=== PATIENT | female | born 1965 | race Caucasian/White ===

== ENCOUNTER 2024-02-02 09:44 | Outpatient (AMB) | payer OTHER, SELFPAY ==
--- NOTE | 2024-02-02 09:46 | MHC.PC.OV ---
Vital Signs 02/02/24 09:47 Height 5 ft 5 in Weight 193 lb 8 oz BMI 32.2 BP 138/88 Blood Pressure Location Lt brachial Position Sitting Pulse 99 Pulse Source Pulse Oximeter Pulse Oximetry (%) 98 Oxygen Delivery Method Room Air Intake Visit Reasons: DESTINATION COORDINATOR-DM Allergies No Known Allergies Allergy (Verified 02/02/24 09:50) Tobacco use date assessed: 02/02/24 Dental Screening Dental Screen Date: 02/02/24 Did you have a dental visit in the last 12 months?: Yes Did you have a dental problem in the last 6 months where you did not have access to dental care?: No Was dental information given to patient?: Patient has dentist HPI HPI Comments History of Present Illness Details 59 year old female with a past medical history of type 2 diabetes mellitus, GERD, asthma, abnormal brain MRI presenting for follow up. Type 2 diabetes: On metformin 1500mg daily, glipizide 20 daily. A1C 8.6%. Asthma: stable on albuterol ROS CONSTITUTIONAL: Denies weight loss, fever and chills. HEENT: Denies changes in vision and hearing. RESPIRATORY: Denies SOB and cough. CV: Denies palpitations and CP GI: Denies abdominal pain, nausea, vomiting and diarrhea. : Denies dysuria and urinary frequency. MSK: Denies new myalgia and joint pain. SKIN: Denies rash and pruritus. NEUROLOGICAL: Denies headache PSYCHIATRIC: Denies recent changes in mood. PHYSICAL EXAM: GENERAL: Alert and oriented x 3. NAD EYES: EOMI. Anicteric. HENT: Moist mucous membranes. No scleral icterus. No cervical lymphadenopathy. LUNGS: Clear to auscultation bilaterally. CARDIOVASCULAR: Regular rate and rhythm. No murmur. No JVD. ABDOMEN: Soft, non-tender +bs EXTREMITIES: No edema. Non-tender. SKIN: No rashes or lesions. Warm. NEUROLOGIC: No focal neurological deficits. CN II-XII grossly intact PSYCHIATRIC: Cooperative. Appropriate mood and affect COUNTS INCLUDE 234 BEDS AT THE [facility] Medical History Diabetes GERD (gastroesophageal reflux disease) Asthma Surgical History Hx of tonsillectomy Hx of appendectomy Family History Maternal Grandfather Hypertension Mother Diabetes Thyroid disorder Cancer Paternal Grandmother Cancer Social History Household Members: Significant Other Housing: House Alcohol intake: never Patient Tobacco Use Status: Never used Tobacco e-Cigarette/Vaping Use: Never Used Current occupational status: employed Current occupation: Accounting Current occupational exposures/hazards: No Cognitive needs: No Hearing needs: Yes Vision needs: No Questionnaire PHQ-9 Over the last 2 weeks, how often have you been bothered by any of the following problems? 1. Little interest or pleasure in doing things: not at all 2. Feeling down, depressed, or hopeless: not at all 3. Trouble falling or staying asleep, or sleeping too much: several days 4. Feeling tired or having little energy: not at all 5. Poor appetite or overeating: several days 6. Feeling bad about yourself - or that you are a failure or have let yourself or your family down: not at all 7. Trouble concentrating on things, such as reading the newspaper or watching television: not at all 8. Moving or speaking so slowly that other people could have noticed. Or the opposite - being so fidgety or restless that you have been moving around a lot more than usual: not at all 9. Thoughts that you would be better off or of hurting yourself in some way: not at all Total score: 2 Depression Screening Interpretation: Negative (neg) Depression Screening Done: Yes 48032 - PHQ-9 Billing: Yes Source: Developed by Drs. Feliciano Herrera, Elsi Negrete, Patricio David and colleagues, with an educational ashley from [employer]. Thrive Questionnaire Date Thrive assessed: 02/02/24 I am a: Patient What is your living situation today?: I have a steady place to live Within the past 12 months, did the food you bought not last and you didn't have the money to get more?: Never true Within the past 12 months, did you worry whether your food would run out before you got money to buy more?: Never true Do you have trouble paying for medicines?: No Do you have trouble getting transportation to medical appointments?: No Do you have trouble paying your heating and electricity bill?: No Do you have trouble taking care of your child, family member or friend?: No Do you have trouble with day-to-day activities such as bathing, preparing meals, shopping, managing finances, etc.?: No Are you currently unemployed and looking for a job?: No Are you interested in more education?: No THRIVE Score: 0 AUDIT C Alcohol Use Questionnaire (AUDIT-C) 1. How often do you have a drink containing alcohol?: Never 3. How often do you have six or more drinks on one occasion?: Never Total Score: 0 TYRESE-7 AMB Questionnaire TYRESE-7 Date TYRESE - 7 assessed: 02/02/24 Feeling nervous, anxious, or on edge: 1 = Several days Not being able to stop or control worryin = More than half the days Worrying too much about different things: 2 = More than half the days Trouble relaxin = Not at all Being so restless that it is hard to sit still: 0 = Not at all Becoming easily annoyed or irritable: 0 = Not at all Feeling afraid as if something awful might happen: 0 = Not at all Total TYRESE-7 score (0-4 normal; 5-9 mild; 10-14 moderate; 15-21 severe): 5 Source: Developed by Drs. Feliciano Herrera, Elsi Negrete, Patricio David and colleagues, with an educational ashley from [employer]. TYRESE-7 Assessment Billing TYRESE-7 Assessment Tool: TYRESE-7 Assessment 40793 ACT Questionnaire In the past 4 weeks, how much of the time did your asthma keep you from getting as much done at work, school or at home?: None of the time During the past 4 weeks, how often have you had shortness of breath?: 1-2 times a week During the past 4 weeks, how often did your asthma symptoms wake you up at night or earlier than usual in the morning?: Not at all During the past 4 weeks, how often have you had to use your rescue inhaler or nebulizer medication?: 1-2 times a week How would you rate your asthma control during the past 4 weeks?: Well controlled ACT Interpretation: Negative Score: 20 Physical exam (Primary Care) Vital Signs: Last Vital Signs Pulse 99 08/12/24 09:47 BP 138/88 02/02/24 09:47 Pulse Ox 98 02/02/24 09:47 Oxygen Delivery Method Room Air 02/02/24 09:47 BMI result Body Mass Index 32.2 Tobacco/Smoking Status: Tobacco use Status Tobacco use date assessed 02/02/24 02/02/24 10:03 Patient Tobacco Use Status Never used Tobacco 02/02/24 10:03 e-Cigarette/Vaping Use Never Used 02/02/24 10:03 PHQ-9: PHQ-9 Score PHQ-9: Total score 2 02/15/24 05:33 Depression Screening Interpretation: Negative (neg) Thrive Assessment: Date of Thrive Assessment Date Thrive assessed 02/02/24 02/02/24 10:03 Results AMB Hemoglobin A1c AMB Hemoglobin A1c 8.6 % Last Edit by Raquel Daly CMA on 02/02/24 10:16 Results Reviewed Results Reviewed: Laboratory Last Values Hgb A1c (Clinic) 8.6 % (4.0-6.0) H 02/02/24 10:10 Assessment and Plan Assessment & Plan (1) Diabetes: Code(s): E11.9 - Type 2 diabetes mellitus without complications Qualifiers: Diabetes mellitus type: type 2 Diabetes mellitus intermediate designer insulin use: without halfway use Diabetes mellitus complication status: with hyperglycemia Qualified Code(s): E11.65 - Type 2 diabetes mellitus with hyperglycemia Plan: Uncontrolled. Add actos. continue glipizide, metformin (2) GERD (gastroesophageal reflux disease): Code(s): K21.9 - Gastro-esophageal reflux disease without esophagitis Qualifiers: Esophagitis presence: esophagitis presence not specified Qualified Code(s): K21.9 - Gastro-esophageal reflux disease without esophagitis Plan 59 y/o to establish care. past medical, surgical, social, family history reviewed Orders: Orders AMB Hemoglobin A1c 02/02/24 E11.9 - Type 2 diabetes mellitus without complications Complete Blood Count Auto Diff 02/02/24 E11.9 - Type 2 diabetes mellitus without complications Comprehensive Met. Panel 02/02/24 E11.9 - Type 2 diabetes mellitus without complications Lipid Panel 02/02/24 E11.9 - Type 2 diabetes mellitus without complications Referrals Dermatology Referral D22.9 - Melanocytic nevi, unspecified Medications: New FreeStyle Lite Strips (blood sugar diagnostic) check blood glucose once daily 100 ea 3RF NS E11.9 - Type 2 diabetes mellitus without complications fluticasone propionate 220 mcg/actuation 2 puffs inhalation BID 12 grams 3RF pioglitazone (Actos) 30 mg PO DAILY 90 tabs 3RF albuterol sulfate 90 mcg/actuation 2 puffs inhalation Q4-6H PRN 8.5 grams 3RF shortness of breath Coding Level of Care Code New Pt Level 4 (80318) Diagnoses Type 2 diabetes mellitus with hyperglycemia, without long-term current use of insulin E11.65 Diabetes mellitus type: type 2 Diabetes mellitus halfway insulin use: without intermediate designer use Diabetes mellitus complication status: with hyperglycemia Gastroesophageal reflux disease, unspecified whether esophagitis present K21.9 Esophagitis presence: esophagitis presence not specified Additional Codes TYRESE-7 Assessment Billing - TYRESE-7 Assessment Tool: TYRESE-7 Assessment 64028 ([id number])
[2024-02-02 09:47] VITALS: BP 138/88; PULSE 99; O2SAT 98; BMI 32.2
== END 2024-02-02 10:54 | disposition home or self-care (01) ==
PROVIDERS: PCP Internal Medicine; Visit Provider Internal Medicine
DX: E11.9 Type 2 diabetes mellitus without complications (principal)
CPT/HCPCS: 83036; 99204

== ENCOUNTER 2024-05-04 08:07 | Outpatient (REF) | payer OTHER, SELFPAY ==
[2024-05-04 11:18] LABS: MANUAL DIFF FLAG NO
[2024-05-04 11:23] LABS: Basophils Percent Auto 0.6 % (0-2); Eosinophils Absolute Auto 0.1 X10*3/uL (0.0-0.4); Eosinophils Percent Auto 1.5 % (0-4); Hematocrit 39.9 % (37.0-47.0); Hemoglobin 12.9 g/dl (12.0-16.0); Imm Gran Abs Auto 0.01 X10*3/uL (0.00-0.03); Imm Gran Pct Auto 0.2 % (0.0-0.4); Lymphocytes Absolute Auto 2.4 X10*3/uL (1.2-4.9); Lymphocytes Percent Auto 44.3 % (20-40); Mean Corpuscular HGB Conc 32.3 g/dl (31.0-35.0); Mean Corpuscular Hemoglobin 29.3 pg (27.0-33.0); Mean Corpuscular Volume 90.7 fL (80.0-98.0); Mean Platelet Volume 9.4 fL (9.4-12.3); Monocytes Absolute Auto 0.4 X10*3/uL (0.1-1.2); Monocytes Percent Auto 8.2 % (2-11); Neutrophils Absolute Auto 2.4 x10*3/uL (2.0-8.3); Neutrophils Percent Auto 45.2 % (45-73); Platelet Count 219 X10*3/uL (160-400); Red Cell Distribution Width 12.7 % (11.0-16.0); White Blood Count 5.4 X10*3/uL (4.8-10.8)
[2024-05-04 11:54] LABS: Alanine Aminotransferase 17 U/L (0-31); Alkaline Phosphatase 58 U/L (39-117); Anion Gap 11 (12-20); Aspartate Amino Transferase 17 U/L (5-31); Blood Urea Nitrogen 17 mg/dL (9-16); Calcium 9.1 mg/dL (8.4-10.2); Carbon Dioxide 29 mmol/L (22-29); Chloride 105 mmol/L (96-108); Cholesterol 206 mg/dL (<200); Estimated Glomerular Filt Rate > 60; Glucose Random 164 mg/dL (60-115); HDL Cholesterol 63 mg/dL (>40); LDL Cholesterol Calculated 115 mg/dL (<100); Potassium 3.7 mmol/L (3.3-5.1); Sodium 141 mmol/L (135-145); Total Protein 6.7 g/dL (6.5-8.0); Triglycerides 142 mg/dL (<150)
== END 2024-05-04 08:08 | disposition home or self-care (01) ==
LOC: HO.WFDLDS 08:07
PROVIDERS: Visit Provider Internal Medicine
DX: E11.9 Type 2 diabetes mellitus without complications (principal)
CPT/HCPCS: 36415; 80053; 80061; 85025

== ENCOUNTER 2024-05-07 09:16 | Outpatient (AMB) | payer OTHER, SELFPAY ==
--- NOTE | 2024-05-07 09:21 | MHC.PC.OV ---
Vital Signs 05/07/24 09:24 Height 5 ft 5 in Weight 198 lb 6 oz BMI 33.0 BP 116/76 Blood Pressure Location Lt brachial Position Sitting Pulse 90 Pulse Source Pulse Oximeter Pulse Oximetry (%) 98 Oxygen Delivery Method Room Air Intake Visit Reasons: DM Intake Note: Diabetes follow up Allergies No Known Allergies Allergy (Verified 05/07/24 09:24) Tobacco use date assessed: 02/02/24 Dental Screening Dental Screen Date: 02/02/24 HPI HPI Comments History of Present Illness Details 59 year old female with a past medical history of type 2 diabetes mellitus, GERD, asthma, abnormal brain MRI presenting for follow up. Type 2 diabetes: On metformin 1500mg daily, glipizide 20 daily, added actos last visit. A1C 8.8% from 8.6%. Cant lose weight. Hesitant to overdo exercise at the moment as she pulled her back and just starting to feel better. hesitant to add medications. Asthma: stable on albuterol Colonoscopy: Mammogram: ROS CONSTITUTIONAL: Denies weight loss, fever and chills. HEENT: Denies changes in vision and hearing. RESPIRATORY: Denies SOB and cough. CV: Denies palpitations and CP GI: Denies abdominal pain, nausea, vomiting and diarrhea. : Denies dysuria and urinary frequency. MSK: Denies new myalgia and joint pain. SKIN: Denies rash and pruritus. NEUROLOGICAL: Denies headache PSYCHIATRIC: Denies recent changes in mood. PHYSICAL EXAM: GENERAL: Alert and oriented x 3. NAD EYES: EOMI. Anicteric. HENT: Moist mucous membranes. No scleral icterus. No cervical lymphadenopathy. LUNGS: Clear to auscultation bilaterally. CARDIOVASCULAR: Regular rate and rhythm. No murmur. No JVD. ABDOMEN: Soft, non-tender +bs EXTREMITIES: No edema. Non-tender. SKIN: No rashes or lesions. Warm. NEUROLOGIC: No focal neurological deficits. CN II-XII grossly intact PSYCHIATRIC: Cooperative. Appropriate mood and affect [facility] Medical History Diabetes GERD (gastroesophageal reflux disease) Asthma Surgical History Hx of tonsillectomy Hx of appendectomy Family History Maternal Grandfather Hypertension Mother Diabetes Thyroid disorder Cancer Paternal Grandmother Cancer Social History Household Members: Significant Other Housing: House Alcohol intake: current Comment: rarely Patient Tobacco Use Status: Never used Tobacco e-Cigarette/Vaping Use: Never Used Current occupational status: employed Current occupation: Accounting Current occupational exposures/hazards: No Cognitive needs: No Hearing needs: Yes Vision needs: No Questionnaire PHQ-9 Over the last 2 weeks, how often have you been bothered by any of the following problems? 1. Little interest or pleasure in doing things: not at all 2. Feeling down, depressed, or hopeless: not at all 3. Trouble falling or staying asleep, or sleeping too much: not at all 4. Feeling tired or having little energy: not at all 5. Poor appetite or overeating: not at all 6. Feeling bad about yourself - or that you are a failure or have let yourself or your family down: not at all 7. Trouble concentrating on things, such as reading the newspaper or watching television: not at all 8. Moving or speaking so slowly that other people could have noticed. Or the opposite - being so fidgety or restless that you have been moving around a lot more than usual: not at all 9. Thoughts that you would be better off or of hurting yourself in some way: not at all Total score: 0 Source: Developed by Drs. Feliciano Herrera, Elsi Negrete, Patricio David and colleagues, with an educational ashley from [employer]. Thrive Questionnaire Date Thrive assessed: 02/02/24 I am a: Patient What is your living situation today?: I have a steady place to live Within the past 12 months, did the food you bought not last and you didn't have the money to get more?: Never true Within the past 12 months, did you worry whether your food would run out before you got money to buy more?: Sometimes True Do you have trouble paying for medicines?: No Do you have trouble getting transportation to medical appointments?: No Do you have trouble paying your heating and electricity bill?: No Do you have trouble taking care of your child, family member or friend?: No Do you have trouble with day-to-day activities such as bathing, preparing meals, shopping, managing finances, etc.?: No Are you currently unemployed and looking for a job?: Yes Are you interested in more education?: No Please select the resources that you would like help with: None Currently or been in a relationship where the following occur: No concerns reported THRIVE Score: 1 AUDIT C Alcohol Use Questionnaire (AUDIT-C) 1. How often do you have a drink containing alcohol?: Monthly or less 2. How many drinks containing alcohol do you have on a typical day when you are drinking?: 1 or 2 3. How often do you have six or more drinks on one occasion?: Never Total Score: 1 TYRESE-7 AMB Questionnaire TYRESE-7 Date TYRESE - 7 assessed: 02/02/24 Feeling nervous, anxious, or on edge: 1 = Several days Not being able to stop or control worryin = Several days Worrying too much about different things: 1 = Several days Trouble relaxin = Several days Being so restless that it is hard to sit still: 0 = Not at all Becoming easily annoyed or irritable: 0 = Not at all Feeling afraid as if something awful might happen: 1 = Several days Total TYRESE-7 score (0-4 normal; 5-9 mild; 10-14 moderate; 15-21 severe): 5 Source: Developed by Drs. Feliciano Herrera, Elsi Negrete, Patricio David and colleagues, with an educational ashley from [employer]. Physical exam (Primary Care) Vital Signs: Last Vital Signs Pulse 90 05/07/24 09:24 BP 116/76 05/07/24 09:24 Pulse Ox 98 05/07/24 09:24 Oxygen Delivery Method Room Air 05/07/24 09:24 BMI result Body Mass Index 33.0 Tobacco/Smoking Status: Tobacco use Status Tobacco use date assessed 02/02/24 05/07/24 09:22 Patient Tobacco Use Status Never used Tobacco 05/07/24 09:23 e-Cigarette/Vaping Use Never Used 05/07/24 09:23 PHQ-9: PHQ-9 Score PHQ-9: Total score 0 05/13/24 14:44 Thrive Assessment: Date of Thrive Assessment Date Thrive assessed 02/02/24 05/07/24 09:22 Currently or been in a relationship where the following occur: No concerns reported Coding Level of Care Code Est Pt Level 4 (72522) Diagnoses Type 2 diabetes mellitus with hyperglycemia, without long-term current use of insulin E11.65 Diabetes mellitus complication status: with hyperglycemia Diabetes mellitus nursing home insulin use: without vermin exterminator use Diabetes mellitus type: type 2 Assessment & Plan Assessment & Plan (1) Diabetes: Code(s): E11.9 - Type 2 diabetes mellitus without complications Category: Medical Qualifiers: Diabetes mellitus complication status: with hyperglycemia Diabetes mellitus vermin exterminator insulin use: without vermin exterminator use Diabetes mellitus type: type 2 Qualified Code(s): E11.65 - Type 2 diabetes mellitus with hyperglycemia Plan: uncontrolled Discussed multiple medication options etc Patient does not want to add medications. Discussed GLP agonist, insulin at length. She may try the oral GLP-rybelsus ordered She will follow up in 3 months Advised to increase exercise Medications: New semaglutide (Rybelsus) 3 mg PO DAILY 90 tabs 3RF 90 days E11.65 - Type 2 diabetes mellitus with hyperglycemia
[2024-05-07 09:24] VITALS: BP 116/76; PULSE 90; O2SAT 98; BMI 33.0
== END 2024-05-07 10:24 | disposition home or self-care (01) ==
PROVIDERS: PCP Internal Medicine; Visit Provider Internal Medicine
DX: E11.65 Type 2 diabetes mellitus with hyperglycemia (principal)

== ENCOUNTER → 2024-05-07 09:16 | Outpatient (BNVA) | payer OTHER, SELFPAY | PROVIDERS: PCP Internal Medicine; Visit Provider Internal Medicine ==

== ENCOUNTER 2024-08-09 09:03 | Outpatient (AMB) | payer OTHER, SELFPAY ==
--- OUTSIDE RECORDS SUMMARY | 2024-08-09 09:06 | XMS_ITS | Data Portability ---
Author Organization [place] - [facility], Allergy Address [address] [place] [id number] Care Team Providers Care Photographer Still Name Role Phone JenniferBRYAN KEVIN Primary Care Provider Assessment Encounter Date Assessment Date Assessment LastModified by Organization Details LastModified Time 06/10/2024 06/10/2024 Overall patient doing well with regards to the absence of fluctuations in hearing. Audiometric testing today shows similar left-sided sensorineural hearing loss in comparison to her last audiogram 1 year ago. I have given her a copy of her audiogram to bring back to her hearing stenographer to ensure that her hearing aid is set to match her current level of hearing loss. Patient would like to continue with yearly audiometric testing to monitor for fluctuation or progression. Not available 06/10/2024 10:18:26 Plan of Treatment Reminders Order Date Submit Date Provider Last Modified By Organization Details Last Modified Time Details Appointments Hearing Test 2024 02:30P M Hearing Test Not available Not available Not available Establish ed 10 2024 03:00P M AUSTIN MATHEWS MD Not available Not available Not available Lab None recorded. Referral None recorded. Procedures None recorded. Surgeries None recorded. Imaging None recorded. Medication Orders None recorded. Patient TargetsNo targets recorded. Patient InstructionsNo instructions recorded. Reason for Referral None Reported. Results Created Date Observation Date Name Description Value Unit Range Abnormal Flag Note LastModifiedBy Organization Detail LastModifiedTime 06/11/20 24 audio gram No observ ation record ed. BARCODE Not Available 2023 12:17:13 Result Notes None recorded. 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 ? ?ni? ? ?re's disease 40079798 Active 2022 Meniere' s disease, left ear; Note: Date Diagnose d: 3 10:41 AM (H81.02) Not Available [facility] 4 03:19:00 Labyrint hitis 13327687 Completed 202101/23/2024 Labyrint hitis, left ear; Note: Date Diagnose d: 2 11:00 AM (H83.02) Not Available [facility] 4 03:19:00 Tinnitus of left ear 73309510416 06 Active 2021 Tinnitus , left ear; Note: Date Diagnose d: 2 11:00 AM (H93.12) Not Available [facility] 4 03:19:00 Problem Notes None recorded. Procedures Surgical History Date Name Laterality Status Provider Name and Address Organization Details Recorded Time 06/10/2024 Air & Speech Audio with Tymps (25282, 23411 & 24492) completed RUDDY LY MA, [facility] [address] [place] [address], [place], [phone], [facility] - [facility] 06/10/2024 09:57:27 Imaging Results Imaging Date Name Status LastModified by Organiz ation Details LastModified Time 06/11/2024 audiogram completed BARCODE Information no t available 06/11/2024 12:17:13 Procedure Notes None recorded. Medical Equipment None Reported. Medications Name Sig Start Date Stop Date Status Note LastModified by Organization Details LastModified Time FreeStyle Lancets 28 gauge USE TO CHECK BLOOD GLUCOSE TWICE DAILY active Not Available Not Available No t Available glipizide ER 5 mg tablet, extended release 24 hr TAKE 4 TABLETS BY MOUTH EVERY DAY active Not Available Not Available No t Available meclizine 25 mg tablet 08/22 completed Medicati on ID: [id number] B rand Name: meclizin david Send Method: E-Prescr ibed Sub s Allowed: subs OK Medic ationGen ericName : meclizin e Not Available Not Available Not Available fluticaso ne propionat e 220 mcg/actua tion HFA aerosol inhaler INHALE 2 PUFFS BY MOUTH 2 TIMES A DAY active Not Available Not Available No t Available albuterol sulfate HFA 90 mcg/actua tion aerosol inhaler INHALE 2 PUFFS BY MOUTH EVERY 4 TO 6 HOURS NEEDED FOR SHORTNES S OF BREATH active Not Available Not Available No t Available pioglitaz one 30 mg tablet TAKE 1 TABLET BY MOUTH EVERY DAY active Not Available Not Available No t Available metformin ER 500 mg tablet,ex tended release 24 hr TAKE 3 TABLETS BY MOUTH EVERY DAY active Not Available Not Available No t Available FreeStyle Lite Strips CHECK BLOOD GLUCOSE ONCE DAILY active Not Available Not Available No t Available Vitals Date Recorded Body weight Body mass index (BMI) Body height Provider Name and Address Organization Details Last Updated DateTime 06/10/2024 67152.51 g 32.4 kg/m2 165.1 cm Naa Medrano [facility] 06/10/2024 10:04:42 Social History None recorded. Functional Status None recorded. Mental Status None recorded. Family History Nothing Reported. Medical History No medical history recorded. Gynecological HistoryNo gynecological history recorded. Obstetrics History GPAL:G 0 P 0 0 0 0 Past Encounters Encounter ID Performer Location Encounter Start Date Encounter Closed Date Diagnosis/Indication Diagnosis SNOMED-CT Code Diagnosis ICD10 Code Diagnosis Note [id number] AUSTIN MATHEWS MD [facility] [address] [place] [address] 06/10/2024 09:17:38 06/10/2024 10:18:07 Sensorineural hearing loss 94003184 H90.42 Audiologic al evaluation results: Right ear: {{Normal* Normal through 2 kHz Mild M oderate Mo derately-s evere Milagro re Profoun d}} {{hearing* hearing. sloping to a mild slopi ng to a moderate s loping to moderately severe slo ping to severe slo ping to profound f lat high frequency low frequency mid frequency cookie bite fox curve}} {{with* se nsorineura l hearing loss with condu ctive hearing loss with mixed hearing loss with}} {{excellen t* good fa ir poor no measurable }} word recognitio n. Left ear: {{Normal N ormal through 2 kHz Mild M oderate Mo derately-s evere Milagro re Profoun d Mild #}} {{hearing hearing. s loping to a mild slopi ng to a moderate s loping to moderately severe slo ping to severe slo ping to profound f lat high frequency low frequency mid frequency cookie bite fox curve SNHL #}} {{with* se nsorineura l hearing loss with condu ctive hearing loss with mixed hearing loss with}} {{excellen t* good fa ir poor no measurable }} word recognitio n. Tympanomet ry: Right Ear:{{Type A* Type As Type Ad Type C Type C, shallow & rounded Ty pe B Type B with large volume Cou ld not maintain a hermetic seal}} Left Ear:{{Type A* Type As Type Ad Type C Type C, shallow & rounded Ty pe B Type B with large volume Cou ld not maintain a hermetic seal}}Hear ing levels are stable AU. Health Concerns Section Related Observation LastModified by Organization Detai ls LastModified Time None Recorded Concern Status LastModified by Organization Details LastModified Time None Recorded Advance Directives Directive None Recorded Payers Encounter Date Sequence Insurance Name Policy Number Policy López Covered Member ID López Member ID Guarantor Name 06/10/2024 1 [employer] [facility] [employer] (O) Cyndy Abarca [id number] Cyndy Abarca Notes Date Note Type Note Provider Name and Address Organization Details Recorded Time 06/10/2024 text/html 59-year-old anny alvarado who suffered a left sudden sensorineural hearing loss with associated dizziness in the summer 2021. Subsequent audiometric testing that showed some element of fluctuating sensorineural hearing loss on the left. I last saw her back 1 year ago she had not been having recurrence of hearing fluctuation. No fluctuations over the last year. She was using unilateral amplification dispensed through a hearing instrument dispenser in [place]. She had also been following a migraine diet. She comes in today for 1 year follow-up and audiogram.. Overall doing very well with her hearing aid and finds that it provides excellent benefit. AUSTIN MATHEWS MD [address] [place] [address], [phone], [facility] - [facility] 06/10/2024 10:18:38 OBGyn Episode No OBEpisode recorded.
--- NOTE | 2024-08-09 09:18 | A.OFFPC_ITS ---
Vital Signs 08/09/24 09:28 Height 5 ft Weight 206 lb BMI 40.2 BP 146/71 H Blood Pressure Location Lt brachial Position Sitting Respiration 15 Pulse 93 Pulse Source Pulse Oximeter Temp 97.9 F Intake Visit Reasons: 3 mn follow up, Diabetes Type 2 Electrical Laboratory Technician Required: No Is last menstrual period known: No Post menopausal: Yes Patient : No Allergies Seasonal Allergies Allergy (Mild, Verified 08/09/24 09:21) Nasal congestion milk Adverse Reaction (Intermediate, Verified 08/09/24 09:21) Abdominal Pain Medication List - Last Reconciled 08/09/24 by Tawanda Davila RN albuterol sulfate 90 mcg/actuation 2 puffs inhalation Q4-6H PRN FreeStyle Lite Strips (blood sugar diagnostic) check blood glucose once daily NS glipizide ER 20 mg (4 x 5 mg) PO DAILY lancets (FreeStyle Lancets) used to check blood sugar one time per day as directed meclizine 25 mg PO DAILY PRN metformin ER 1,500 mg (3 x 500 mg) PO DAILY pioglitazone (Actos) 30 mg PO DAILY Tobacco use date assessed: 02/02/24 Dental Screening Dental Screen Date: 06/11/24 Did you have a dental problem in the last 6 months where you did not have access to dental care?: No Was dental information given to patient?: No HPI HPI Comments History of Present Illness Details 59 year old female with a past medical h istory of type 2 diabetes mellitus, GERD, asthma, abnormal brain MRI presenting for follow up. Type 2 diabetes: On metformin 1500mg daily, glipizide 20 daily, Actos. She is due for A1C.Last A1C 8.8% from 8.6%. Difficulty losing weight does not want GLP, additional medication though she did medicinal plant picker her prescription for rybelsus but never started it. She is eating low carb, exercising multiple times per week. Asthma: stable on albuterol Colonoscopy: Mammogram: ROS CONSTITUTIONAL: Denies weight loss, fever and chills. HEENT: Denies changes in vision and hearing. RESPIRATORY: Denies SOB and cough. CV: Denies palpitations and CP GI: Denies abdominal pain, nausea, vomiting and diarrhea. : Denies dysuria and urinary frequency. MSK: Denies new myalgia and joint pain. SKIN: Denies rash and pruritus. NEUROLOGICAL: Denies headache PSYCHIATRIC: Denies recent changes in mood. PHYSICAL EXAM: GENERAL: Alert and oriented x 3. NAD EYES: EOMI. Anicteric. HENT: Moist mucous membranes. No scleral icterus. No cervical lymphadenopathy. LUNGS: Clear to auscultation bilaterally. CARDIOVASCULAR: Regular rate and rhythm. No murmur. No JVD. ABDOMEN: Soft, non-tender +bs EXTREMITIES: No edema. Non-tender. SKIN: No rashes or lesions. Warm. NEUROLOGIC: No focal neurological deficits. CN II-XII grossly intact PSYCHIATRIC: Cooperative. Appropriate mood and affect [facility] Medical History Diabetes GERD (gastroesophageal reflux disease) Asthma Surgical History Hx of tonsillectomy Hx of appendectomy Family History Maternal Grandfather Hypertension Mother Diabetes Thyroid disorder Cancer Paternal Grandmother Cancer Social History Household Members: Significant Other Housing: House Alcohol intake: current Comment: rarely Patient Tobacco Use Status: Never used Tobacco e-Cigarette/Vaping Use: Never Used Current occupational status: employed and student Current occupation: Accounting Current occupational exposures/hazards: No Cognitive needs: No Hearing needs: Yes Vision needs: No Questionnaire PHQ-9 Over the last 2 weeks, how often have you been bothered by any of the following problems? 1. Little interest or pleasure in doing things: not at all 2. Feeling down, depressed, or hopeless: not at all 3. Trouble falling or staying asleep, or sleeping too much: not at all 4. Feeling tired or having little energy: not at all 5. Poor appetite or overeating: not at all 6. Feeling bad about yourself - or that you are a failure or have let yourself or your family down: not at all 7. Trouble concentrating on things, such as reading the newspaper or watching television: not at all 8. Moving or speaking so slowly that other people could have noticed. Or the opposite - being so fidgety or restless that you have been moving around a lot more than usual: not at all 9. Thoughts that you would be better off or of hurting yourself in some way: not at all Total score: 0 Depression Screening Interpretation: Negative Depression Screening Done: Yes 76068 - PHQ-9 Billing: Yes Source: Developed by Drs. Feliciano Herrera, Elsi Negrete, Patricio David and colleagues, with an educational ashley from [employer]. Thrive Questionnaire Date Thrive assessed: 08/06/24 I am a: Patient What is your living situation today?: I have a steady place to live Within the past 12 months, did the food you bought not last and you didn't have the money to get more?: Never true Within the past 12 months, did you worry whether your food would run out before you got money to buy more?: Never true Do you have trouble paying for medicines?: No Do you have trouble getting transportation to medical appointments?: No Do you have trouble paying your heating and electricity bill?: No Do you have trouble taking care of your child, family member or friend?: No Do you have trouble with day-to-day activities such as bathing, preparing meals, shopping, managing finances, etc.?: No Are you currently unemployed and looking for a job?: Yes Are you interested in more education?: I choose not to answer this question Please select the resources that you would like help with: None Currently or been in a relationship where the following occur: No concerns reported THRIVE Score: 0 AUDIT C Alcohol Use Questionnaire (AUDIT-C) 1. How often do you have a drink containing alcohol?: Monthly or less 2. How many drinks containing alcohol do you have on a typical day when you are drinking?: 1 or 2 3. How often do you have six or more drinks on one occasion?: Never Total Score: 1 TYRESE-7 AMB Questionnaire TYRESE-7 Date TYRESE - 7 assessed: 02/02/24 Feeling nervous, anxious, or on edge: 0 = Not at all Not being able to stop or control worryin = Not at all Worrying too much about different things: 0 = Not at all Trouble relaxin = Not at all Being so restless that it is hard to sit still: 0 = Not at all Becoming easily annoyed or irritable: 0 = Not at all Feeling afraid as if something awful might happen: 0 = Not at all Total TYRESE-7 score (0-4 normal; 5-9 mild; 10-14 moderate; 15-21 severe): 0 Source: Developed by Drs. Feliciano Herrera, Elsi Negrete, Patricio David and colleagues, with an educational ashley from [employer]. Physical exam (Primary Care) Vital Signs: Last Vital Signs Temp 97.9 F 08/09/24 09:28 Pulse 93 08/09/24 09:28 Resp 15 08/09/24 09:28 BP 146/71 H 08/09/24 09:28 BMI result Body Mass Index 40.2 Tobacco/Smoking Status: Tobacco use Status Tobacco use date assessed 02/02/24 08/09/24 09:32 Patient Tobacco Use Status Never used Tobacco 08/09/24 09:32 e-Cigarette/Vaping Use Never Used 08/09/24 09:32 PHQ-9: PHQ-9 Score PHQ-9: Total score 0 08/10/24 07:23 Depression Screening Interpretation: Negative Thrive Assessment: Date of Thrive Assessment Date Thrive assessed 08/06/24 08/09/24 09:32 Currently or been in a relationship where the following occur: No concerns reported Coding Level of Care Code Est Pt Level 4 (43563) Complex EM visit Add On G2211 Diagnoses Type 2 diabetes mellitus with hyperglycemia, without long-term current use of insulin E11.65 Diabetes mellitus complication status: with hyperglycemia Diabetes mellitus joint terminal attack controller insulin use: without joint terminal attack controller use Diabetes mellitus type: type 2 Additional Codes PHQ-9 - 85579 - PHQ-9 Billing: Yes ([id number]) Assessment & Plan Assessment & Plan (1) Diabetes: Code(s): E11.9 - Type 2 diabetes mellitus without complications Category: Medical Qualifiers: Diabetes mellitus complication status: with hyperglycemia Diabetes mellitus skilled nursing insulin use: without joint terminal attack controller use Diabetes mellitus type: type 2 Qualified Code(s): E11.65 - Type 2 diabetes mellitus with hyperglycemia Plan: Pending A1C. She will go to the lab and follow up for results Continued dietary/lifestyle changes. Orders: Orders Hemoglobin A1c 08/09/24 E11.65 - Type 2 diabetes mellitus with hyperglycemia, K21.9 - Gastro-esophageal reflux disease without esophagitis Comprehensive Met. Panel 02/17/25 E11.65 - Type 2 diabetes mellitus with hyperglycemia, K21.9 - Gastro-esophageal reflux disease without esophagitis Lipid Panel 08/09/24 - Type 2 diabetes mellitus with hyperglycemia, K21.9 - Gastro-esophageal reflux disease without esophagitis Hemoglobin A1c 08/09/24 - Type 2 diabetes mellitus with hyperglycemia Comprehensive Met. Panel 08/09/24 - Type 2 diabetes mellitus with hyperglycemia
[2024-08-09 09:28] VITALS: BP 146/71; PULSE 93; RESP 15; TEMP 36.6; BMI 40.2
== END 2024-08-09 09:59 | disposition home or self-care (01) ==
PROVIDERS: PCP Internal Medicine; Visit Provider Internal Medicine
DX: E11.65 Type 2 diabetes mellitus with hyperglycemia (principal)

== ENCOUNTER → 2024-08-09 09:03 | Outpatient (BNVA) | payer OTHER, SELFPAY | PROVIDERS: PCP Internal Medicine; Visit Provider Internal Medicine | DX: E11.65 Type 2 diabetes mellitus with hyperglycemia (principal); J45.909 Unspecified asthma, uncomplicated; K21.9 Gastro-esophageal reflux disease without esophagitis | CPT/HCPCS: 96127 ==

== ENCOUNTER 2024-08-09 10:00 | Outpatient (REF) | payer OTHER, SELFPAY ==
[2024-08-09 11:13] LABS: Alanine Aminotransferase 19 U/L (0-31); Albumin Level 4.1 g/dL (3.5-5.0); Alkaline Phosphatase 62 U/L (39-117); Anion Gap 14 (12-20); Aspartate Amino Transferase 17 U/L (5-31); Bilirubin Total 0.7 mg/dL (0.0-1.0); Blood Urea Nitrogen 12 mg/dL (9-16); Calcium 9.2 mg/dL (8.4-10.2); Carbon Dioxide 22 mmol/L (22-29); Chloride 108 mmol/L (96-108); Cholesterol 194 mg/dL (<200); Estimated Glomerular Filt Rate > 60; Glucose Random 129 mg/dL (60-115); HDL Cholesterol 55 mg/dL (>40); LDL Cholesterol Calculated 106 mg/dL (<100); Potassium 4.1 mmol/L (3.3-5.1); Sodium 140 mmol/L (135-145); Total Protein 7.3 g/dL (6.5-8.0); Triglycerides 169 mg/dL (<150)
[2024-08-09 11:16] LABS: Estimated Average Glucose 174 mg/dL; Hemoglobin A1C 211.3155 umol/L; Hemoglobin A1c % 7.7 % (<6.0); Total Hemoglobin (HGBA1C) 3477.2759 umol/L
== END 2024-08-09 10:01 | disposition home or self-care (01) ==
LOC: HO.WFDLDS 10:00
PROVIDERS: Visit Provider Internal Medicine
DX: E11.65 Type 2 diabetes mellitus with hyperglycemia (principal); K21.9 Gastro-esophageal reflux disease without esophagitis
CPT/HCPCS: 36415; 80053; 80061; 83036

== ENCOUNTER 2024-09-27 12:59 | Outpatient (AMB) | payer OTHER, SELFPAY ==
--- NOTE | 2024-09-27 13:02 | AM.OFFWIN_ITS ---
Intake Vital Signs 09/27/24 13:06 Height 5 ft 5 in Weight 204 lb BMI 33.9 BP 138/78 Blood Pressure Location Lt brachial Position Sitting Respiration 13 Pulse 97 Pulse Source Pulse Oximeter Temp 97.8 F Temp Source Oral Pulse Oximetry (%) 98 Oxygen Delivery Method Simple Mask Intake Visit Reasons: Flue, congestion Intake Note: Patient c/o coughing, congestion, facial pressure and left ear bothering x 1 week Patient Tobacco Use Status: Never used Tobacco Padding Gluer Required: No Allergies Seasonal Allergies Allergy (Mild, Verified 09/27/24 13:12) Nasal congestion milk Adverse Reaction (Intermediate, Verified 09/27/24 13:12) Abdominal Pain Medication List - Last Reconciled 09/27/24 by Yaneli Preston, [facility]- albuterol sulfate 90 mcg/actuation 2 puffs inhalation Q4-6H PRN FreeStyle Lite Strips (blood sugar diagnostic) check blood glucose once daily NS glipizide ER 20 mg (4 x 5 mg) PO DAILY lancets (FreeStyle Lancets) used to check blood sugar one time per day as directed meclizine 25 mg PO DAILY PRN metformin ER 1,500 mg (3 x 500 mg) PO DAILY pioglitazone (Actos) 30 mg PO DAILY Do you need a note to return to daycare/school/sports/work: No HPI HPI Comments History of Present Illness Details [facility] w/ flu like sx Started 1 week ago at first thought it was allergies d/t yardwork and dog exposure Sx: feeling tired, sore throat, facial pressure, disturbed sleep d/t sx, headache, cough Tried OTC meds w/ short lived relief Denies fever, chills. Exam: General: Awake, alert. No apparent distress Eyes: Sclera and conjunctiva clear bilaterally Nose: Nares clear drainage, congested, turbinates within normal limits, mild sinus tenderness with palpation maxillary sinuses bilaterally Ears: Tympanic membranes intact and clear bilaterally Throat: Moist mucosa membrane, pharynx within normal limits, no ac adenopathy Cardiovascular: Regular rate and rhythm Respiratory: Clear to auscultation bilaterally During my consultation with the patient, we explored the likelihood of a viral upper respiratory infection given the symptomatology of sinus pressure and congestion without significant findings supporting a bacterial sinus infection, which often presents following prolonged cold symptoms beyond 14 days. I reviewed the rationale for supportive care treatment, emphasizing the need for nasal decongestants and rest rather than antibiotics at this time. I explained the potential fluctuation of viral symptoms and the commonality of current exposures leading to viral infections. Swab testing for influenza, COVID, and RSV completed. She was informed of signs warranting further evaluation, namely if symptoms persist or worsen, indicating a potential bacterial process. I discussed the option of prescription antiviral therapy, should influenza be confirmed. She will be called w/ results once available. Until then, supportive care. Patient instructions - Continue using [id number] nasal decongestants like Sudafed as needed. - Maintain hydration by drinking plenty of fluids. - Get plenty of rest and avoid strenuous activity. - Try to minimize exposure to allergens such as dust and pollen. - If symptoms persist or worsen, seek fu rther medical evaluation. - Contact the clinic if a work note is r equired. Total time spent caring for the patient today was 30 minutes. This includes time spent before the visit reviewing the chart, time spent during the visit, and time spent after the visit on documentation, reviewing laboratory results, diagnostic imaging, medications, performing a medically necessary evaluation, counseling on diagnoses, care coordination, ordering appropriate tests, ordering appropriate medications, review of tests performed by other providers, reporting test results with the patient, communication with other healthcare providers. [facility] Medical History Diabetes GERD (gastroesophageal reflux disease) Asthma Surgical History Hx of tonsillectomy Hx of appendectomy Family History Maternal Grandfather Hypertension Mother Diabetes Thyroid disorder Cancer Paternal Grandmother Cancer Social History Household Members: Significant Other Housing: House Alcohol intake: current Comment: rarely Patient Tobacco Use Status: Never used Tobacco e-Cigarette/Vaping Use: Never Used Current occupational status: employed and student Current occupation: Accounting Current occupational exposures/hazards: No Cognitive needs: No Hearing needs: Yes Vision needs: No Physical Exam Vital Signs: Last Vital Signs Temp 97.8 F 09/27/24 13:06 Pulse 97 04/07/25 13:06 Resp 13 09/27/24 13:06 BP 138/78 09/27/24 13:06 Pulse Ox 98 09/27/24 13:06 Oxygen Delivery Method Simple Mask 09/27/24 13:06 BMI result Body Mass Index 33.9 Assessment & Plan Assessment & Plan (1) Flu-like symptoms: Code(s): R68.89 - Other general symptoms and signs Plan . Orders: Orders SARS-CoV2/FLU/RSV Today R09.89 - Other specified symptoms and signs involving the circulatory and respiratory systems, R68.89 - Other general symptoms and signs Coding Level of Care Code Est Pt Level 4 (44162) Diagnoses Flu-like symptoms R68.89
[2024-09-27 13:06] VITALS: BP 138/78; PULSE 97; RESP 13; TEMP 36.6; O2SAT 98; BMI 33.9
--- OUTSIDE RECORDS SUMMARY | 2024-09-27 15:24 | XMS_ITS | Data Portability ---
Author Organization [place] - [facility], Allergy Address [address] [place] [phone] Care Team Providers Care Category Manager Name Role Phone JenniferBRYAN KEVIN Primary Care Provider [phone] Assessment Encounter Date Assessment Date Assessment LastModified by Organization Details LastModified Time 06/10/2024 06/10/2024 Overall patient doing well with regards to the absence of fluctuations in hearing. Audiometric testing today shows similar left-sided sensorineural hearing loss in comparison to her last audiogram 1 year ago. I have given her a copy of her audiogram to bring back to her lan specialist to ensure that her hearing aid is set to match her current level of hearing loss. Patient would like to continue with yearly audiometric testing to monitor for fluctuation or progression. 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 ? ?ni? ? ?re's disease 01104575 Active 2022 Meniere' s disease, left ear; Note: Date Diagnose d: 3 10:41 AM (H81.02) Not Available [facility] 4 03:19:00 Labyrint hitis 39180276 Completed 202101/23/2024 Labyrint hitis, left ear; Note: Date Diagnose d: 2 11:00 AM (H83.02) Not Available [facility] 4 03:19:00 Tinnitus of left ear 45195751040 06 Active 2021 Tinnitus , left ear; Note: Date Diagnose d: 2 11:00 AM (H93.12) Not Available [facility] 4 03:19:00 Problem Notes None recorded. Procedures Surgical History Date Name Laterality Status Provider Name and Address Organization Details Recorded Time 06/10/2024 Air & Speech Audio with Tymps (10923, 41751 & 97681) completed RUDDY LY MA, [facility] [address] [place] [address], [place], [phone], [facility] - [facility] 06/10/2024 09:57:27 Imaging Results Imaging Date Name [...] mg tablet 08/22 completed Medicati on ID: [id number] B rand Name: meclizin david Send Method: [...] Address Organization Details Last Updated DateTime 06/10/2024 16456.51 g 32.4 kg/m2 165.1 cm Naa Medrano [facility] 06/10/2024 10:04:42 Social History None recorded. Functional Status None recorded. Mental Status None recorded. Family History Nothing Reported. Medical History No medical history recorded. Gynecological HistoryNo gynecological history recorded. Obstetrics History GPAL:G 0 P 0 0 0 0 Past Encounters Encounter ID Performer Location Encounter Start Date Encounter Closed Date Diagnosis/Indication Diagnosis SNOMED-CT Code Diagnosis ICD10 Code Diagnosis Note [id number] AUSTIN MATHEWS MD [facility] [address] [place] [address] 06/10/2024 09:17:38 06/10/2024 10:18:07 Sensorineural hearing loss 31569819 H90.42 Audiologic al evaluation results: Right ear: [...] frequency low frequency mid frequency cookie bite fxo curve SNHL #}} {{with* se nsorineura l [...] ID Guarantor Name 06/10/2024 1 [employer]ANS [facility] [email or web address] (O) Cyndy Abarca [id number] Cyndy Abraca Notes Date Note Type Note Provider Name [...] dispensed through a hearing instrument dispenser in [place]. She had also been following a migraine diet. She comes in today for 1 year follow-up and audiogram.. Overall doing very well with her hearing aid and finds that it provides excellent benefit. AUSTIN MATHEWS MD [address] [place] [address], [phone], [facility] - [facility] 06/10/2024 10:18:38 OBGyn Episode No OBEpisode recorded.
== END 2024-09-27 13:24 | disposition home or self-care (01) ==
LOC: HO.HMCFM 13:00
PROVIDERS: PCP Internal Medicine; Visit Provider Nurse Practitioner Family
DX: R68.89 Other general symptoms and signs (principal)

== ENCOUNTER 2024-09-27 12:59 | Outpatient (REF) | payer OTHER, SELFPAY ==
[2024-09-27 18:31] LABS: Influenza A PCR NEGATIVE (Negative); Influenza B PCR NEGATIVE (Negative); Resp Syncy Virus RNA Qual PCR NEGATIVE (Negative); SARS COV2 PCR INHOUSE NEGATIVE (Negative)
== END 2024-09-27 13:00 | disposition home or self-care (01) ==
LOC: HO.LNP 12:59
PROVIDERS: PCP Internal Medicine; Visit Provider Nurse Practitioner Family
DX: R05.8 Other specified cough (principal); R09.89 Other specified symptoms and signs involving the circulatory and respiratory systems; R68.89 Other general symptoms and signs
CPT/HCPCS: 0241U

== ENCOUNTER 2024-11-23 09:33 | Outpatient (AMB) | payer OTHER, SELFPAY ==
--- NOTE | 2024-11-23 09:35 | A.OFFPC_ITS ---
Vital Signs 11/23/24 09:39 11/23/24 09:47 Height 5 ft 5 in Weight 202 lb 8 oz BMI 33.7 BP 124/92 H 126/82 Blood Pressure Location Lt brachial Lt brachial Position Sitting Sitting Respiration 14 Pulse 94 Pulse Source Pulse Oximeter Pulse Oximetry (%) 97 Oxygen Delivery Method Room Air Intake Visit Reasons: DM Intake Note: diabetes follow up. [employer] Humanities Teacher Required: No Allergies Seasonal Allergies Allergy (Mild, Verified 11/23/24 09:36) Nasal congestion milk Adverse Reaction (Intermediate, Verified 11/23/24 09:36) Abdominal Pain Tobacco use date assessed: 11/23/24 Dental Screening Dental Screen Date: 11/23/24 Did you have a dental visit in the last 12 months?: Yes Did you have a dental problem in the last 6 months where you did not have access to dental care?: No Was dental information given to patient?: Patient has dentist HPI HPI Comments History of Present Illness Details 59 year old female with a past medical h istory of type 2 diabetes mellitus, GERD, asthma, abnormal brain MRI presenting for follow up. Type 2 diabetes: On metformin 1500mg daily, glipizide 20 daily, Actos 30mg. A1C 7.1%. Last A1C 8.8% from 8.6%. Difficulty losing weight but has lost 2 pounds since her last visit and 2 prior to that. She is eating low carb, exercising multiple times per week. Just ran a [employer]. She saw instrumentation engineering technician and has started a new eating program. She is using a nutrition ward Asthma: stable on albuterol Colonoscopy: Mammogram: ROS CONSTITUTIONAL: Denies weight loss, fever and chills. HEENT: Denies changes in vision and hearing. RESPIRATORY: Denies SOB and cough. CV: Denies palpitations and CP GI: Denies abdominal pain, nausea, vomiting and diarrhea. : Denies dysuria and urinary frequency. MSK: Denies new myalgia and joint pain. SKIN: Denies rash and pruritus. NEUROLOGICAL: Denies headache PSYCHIATRIC: Denies recent changes in mood. PHYSICAL EXAM: GENERAL: Alert and oriented x 3. NAD EYES: EOMI. Anicteric. HENT: Moist mucous membranes. No scleral icterus. No cervical lymphadenopathy. LUNGS: Clear to auscultation bilaterally. CARDIOVASCULAR: Regular rate and rhythm. No murmur. No JVD. ABDOMEN: Soft, non-tender +bs EXTREMITIES: No edema. Non-tender. SKIN: No rashes or lesions. Warm. NEUROLOGIC: No focal neurological deficits. CN II-XII grossly intact PSYCHIATRIC: Cooperative. Appropriate mood and affect [facility] Medical History Diabetes GERD (gastroesophageal reflux disease) Asthma Surgical History Hx of tonsillectomy Hx of appendectomy Family History Maternal Grandfather Hypertension Mother Diabetes Thyroid disorder Cancer Paternal Grandmother Cancer Social History Household Members: Significant Other Housing: House Alcohol intake: current Comment: rarely Patient Tobacco Use Status: Never used Tobacco e-Cigarette/Vaping Use: Never Used service: No Current occupational status: employed and student Current occupation: Accounting Current occupational exposures/hazards: No Cognitive needs: No Hearing needs: Yes Vision needs: No Questionnaire Thrive Questionnaire Date Thrive assessed: 08/06/24 I am a: Patient What is your living situation today?: I have a steady place to live Within the past 12 months, did the food you bought not last and you didn't have the money to get more?: Never true Within the past 12 months, did you worry whether your food would run out before you got money to buy more?: Never true Do you have trouble paying for medicines?: No Do you have trouble getting transportation to medical appointments?: No Do you have trouble paying your heating and electricity bill?: No Do you have trouble taking care of your child, family member or friend?: No Do you have trouble with day-to-day activities such as bathing, preparing meals, shopping, managing finances, etc.?: No Are you currently unemployed and looking for a job?: Yes Are you interested in more education?: I choose not to answer this question Please select the resources that you would like help with: None Currently or been in a relationship where the following occur: No concerns reported THRIVE Score: 0 AUDIT C Alcohol Use Questionnaire (AUDIT-C) 1. How often do you have a drink containing alcohol?: Monthly or less 2. How many drinks containing alcohol do you have on a typical day when you are drinking?: 1 or 2 3. How often do you have six or more drinks on one occasion?: Never Total Score: 1 TYRESE-7 AMB Questionnaire TYRESE-7 Date TYRESE - 7 assessed: 02/02/24 Source: Developed by Drs. Feliciano Herrera, Elsi Negrete, Patricio David and colleagues, with an educational ashley from [employer]. Physical exam (Primary Care) Vital Signs: Last Vital Signs Pulse 94 11/23/24 09:39 Resp 14 11/23/24 09:39 BP 124/92 H 11/23/24 09:39 Pulse Ox 97 11/23/24 09:39 Oxygen Delivery Method Room Air 11/23/24 09:39 BMI result Body Mass Index 33.7 Tobacco/Smoking Status: Tobacco use Status Tobacco use date assessed 02/02/24 11/23/24 09:36 Patient Tobacco Use Status Never used Tobacco 11/23/24 09:36 e-Cigarette/Vaping Use Never Used 11/23/24 09:36 Thrive Assessment: Date of Thrive Assessment Date Thrive assessed 08/06/24 11/23/24 09:36 Currently or been in a relationship where the following occur: No concerns reported Coding Level of Care Code Est Pt Level 4 (08226) Diagnoses Type 2 diabetes mellitus with hyperglycemia, without long-term current use of insulin E11.65 Diabetes mellitus type: type 2 Diabetes mellitus mcc insulin use: without mcc use Diabetes mellitus complication status: with hyperglycemia Gastroesophageal reflux disease, unspecified whether esophagitis present K21.9 Esophagitis presence: esophagitis presence not specified Assessment & Plan Assessment & Plan (1) Diabetes: Code(s): E11.9 - Type 2 diabetes mellitus without complications Category: Medical Qualifiers: Diabetes mellitus type: type 2 Diabetes mellitus termite control service representative insulin use: without mcc use Diabetes mellitus complication status: with hyperglycemia Qualified Code(s): E11.65 - Type 2 diabetes mellitus with hyperglycemia (2) GERD (gastroesophageal reflux disease): Code(s): K21.9 - Gastro-esophageal reflux disease without esophagitis Category: Medical Qualifiers: Esophagitis presence: esophagitis presence not specified Qualified Code(s): K21.9 - Gastro-esophageal reflux disease without esophagitis Plan DM2-Much improved glycemic control. continue lifestyle changes. No medication changes today On new diet journey Blood pressure is well controlled Orders: Orders Comprehensive Met. Panel 3 Months E11.65 - Type 2 diabetes mellitus with hyperglycemia Complete Blood Count Auto Diff 3 Months E11.65 - Type 2 diabetes mellitus with hyperglycemia Lipid Panel 3 Months E11.65 - Type 2 diabetes mellitus with hyperglycemia Vitamin B12 and Folate Today G62.9 - Polyneuropathy, unspecified
[2024-11-23 09:39] VITALS: BP 124/92; PULSE 94; RESP 14; O2SAT 97; BMI 33.7
[2024-11-23 09:47] VITALS: BP 126/82
--- OUTSIDE RECORDS SUMMARY | 2024-11-23 10:38 | XMS_ITS | Data Portability ---
Author Organization [place] - [facility], Allergy Address [address] [place] [phone] Care Team Providers Care Coil Tester Name Role Phone JenniferBRYAN KEVIN Primary Care [...] her audiogram to bring back to her emr specialist to ensure that her hearing aid is set to match her current level of hearing loss. Patient would like to continue with yearly audiometric testing to monitor for fluctuation or progression. [email or web address] Not available 06/10/2024 10:18:26 Plan of Treatment [...] Details Recorded Time Sensorin eural hearing loss 80250594 Active 2021 Sensorin eural hearing loss, unilater al, left ear, with unrestri cted hearing on the contrala teral side; Note: Date Diagnose d: 2 11:00 AM (H90.42) Not Available [facility] 4 03:19:01 Sudden idiopath ic hearing loss 742571157 Active 2021 Sudden idiopath ic hearing loss, left ear; Note: Date Diagnose d: 2 11:00 AM (H91.22) Not Available [facility] 4 03:19:00 General unsteadi ness 637119537 Completed 202101/23/2024 Unsteadi ness on feet; Note: Date Diagnose d: 2 11:00 AM (R26.81) Not Available [facility] 4 03:19:00 M? ? ?ni? ? ?re's disease 94576182 Active 2022 Meniere' s disease, left ear; Note: Date Diagnose d: 3 10:41 AM (H81.02) Not Available [facility] 4 03:19:00 Labyrint hitis 46636262 Completed 202101/23/2024 Labyrint hitis, left ear; Note: Date Diagnose d: 2 11:00 AM (H83.02) Not Available [facility] 4 03:19:00 Tinnitus of left ear 58093625543 06 Active 2021 Tinnitus , left ear; Note: Date Diagnose d: 2 11:00 AM (H93.12) Not Available [facility] 4 03:19:00 Problem Notes None recorded. Procedures Surgical History Date Name Laterality Status Provider Name and Address Organization Details Recorded Time 06/10/2024 Air & Speech Audio with Tymps - 09182, 07093 & 86440 completed RUDDY LY MA, [facility] [address] [place] [address],[address], [phone], [facility] - [facility] 06/10/2024 09:57:27 Imaging Results None recorded. Procedure Notes None recorded. Medical Equipment None [...] mg tablet 08/22 completed Medicati on ID: [id number] B rand Name: sashalizin e Send Method: E-Prescr ibed Sub s Allowed: [...] Address Organization Details Last Updated DateTime 06/10/2024 90587.51 g 32.4 kg/m2 165.1 cm Naa Medrano [place] - [facility] 06/10/2024 10:04:42 Social History None recorded. Functional Status None recorded. Mental Status None recorded. Family History Nothing Reported. Medical History No medical history recorded. Gynecological HistoryNo gynecological history recorded. Obstetrics History GPAL:G 0 P 0 0 0 0 Past Encounters Encounter ID Performer Location Encounter Start Date Encounter Closed Date Diagnosis/Indication Diagnosis SNOMED-CT Code Diagnosis ICD10 Code Diagnosis Note [id number] AUSTIN MATHEWS MD [facility] [address] [address] 06/10/2024 09:17:38 06/10/2024 10:18:07 Sensorineural hearing loss 61312855 H90.42 Audiologic al evaluation results: Right ear: Normal hearing with excellent word recognitio n. Left ear: Normal Nor mal through 2 kHz Mild M oderate Mo derately-s evere Milagro re Profoun d Mild hearing he aring. slo ping to a mild slopi ng to a moderate s loping to moderately severe slo ping to severe slo ping to profound f lat high frequency low frequency mid frequency cookie bite fox curve SNHL with excellent word recognitio n. Tympanomet ry: Right Ear:Type A Left Ear:Type AHearing levels are stable AU. Health Concerns Section Related Observation LastModified by Organization Detai ls LastModified Time None Recorded Concern Status LastModified by Organization Details LastModified Time None Recorded Advance Directives Directive None Recorded Payers Insurance Date Sequence Insurance Name Policy Number Policy López Covered Member ID López Member ID Guarantor Name 06/10/2024 1 [facility] Cyndy Valladares Rima [id number] Cyndy Valladares Rima 06/10/2024 1 [employer]ANS [facility] Cyndy A Rima [id number] Cyndy Valladares Rima 06/10/2024 2 [employer] PLANS [facility] Cyndy A Rima [id number] Cyndy Valladares Rima Notes Date Note Type Note Provider Name [...] dispensed through a hearing instrument dispenser in [place]. She had also been following a migraine diet. She comes in today for 1 year follow-up and audiogram.. Overall doing very well with her hearing aid and finds that it provides excellent benefit. AUSTIN MATHEWS MD [address] [place] [address], [phone], [facility] - [facility] 06/10/2024 10:18:38 OBGyn Episode No OBEpisode recorded.
== END 2024-11-23 10:07 | disposition home or self-care (01) ==
LOC: HO.HMCFM 09:34
PROVIDERS: PCP Internal Medicine; Visit Provider Internal Medicine
DX: E11.65 Type 2 diabetes mellitus with hyperglycemia (principal); K21.9 Gastro-esophageal reflux disease without esophagitis

== ENCOUNTER → 2024-11-23 09:33 | Outpatient (BNVA) | payer OTHER, SELFPAY | PROVIDERS: PCP Internal Medicine; Visit Provider Internal Medicine | DX: E11.65 Type 2 diabetes mellitus with hyperglycemia (principal); K21.9 Gastro-esophageal reflux disease without esophagitis; J45.909 Unspecified asthma, uncomplicated; Z79.84 Long term (current) use of oral hypoglycemic drugs | CPT/HCPCS: 83036 ==

== ENCOUNTER 2025-03-01 08:58 | Outpatient (AMB) | payer OTHER, SELFPAY ==
--- NOTE | 2025-03-01 09:00 | MHC.PC.OV ---
Vital Signs 03/01/25 09:04 Height 5 ft 5 in Weight 202 lb 2 oz BMI 33.6 BP 110/82 Blood Pressure Location Rt brachial Position Sitting Respiration 14 Pulse 89 Pulse Source Pulse Oximeter Pulse Oximetry (%) 98 Oxygen Delivery Method Room Air Intake Visit Reasons: DM Intake Note: Diabetes follow up Psychiatric Clinical Nurse Specialist Required: No Allergies Seasonal Allergies Allergy (Mild, Verified 03/01/25 09:03) Nasal congestion milk Adverse Reaction (Intermediate, Verified 03/01/25 09:03) Abdominal Pain Tobacco use date assessed: 11/23/24 Dental Screening Dental Screen Date: 11/23/24 HPI HPI Comments History of Present Illness Details 59 year old female with a past medical history of type 2 diabetes mellitus, GERD, asthma, abnormal brain MRI presenting for follow up. Type 2 diabetes: On metformin 1500mg daily, glipizide 20 daily, Actos 30mg. A1C 7.0%. Last A1C 7.1%. Last A1C 8.8% from 8.6%. She is eating low carb, exercising multiple times per week.Has seen nutrition, using nutrition ward. Recent UTI seen in urgent care. Says feels much better but still not back to normal. No fevers. No vaginal itching, no discharge Asthma: stable on albuterol Colonoscopy: Declines (also declines cologuard) Mammogram: [facility] Hernandez: Abraham HUFFMAN CONSTITUTIONAL: Denies weight loss, fever and chills. HEENT: Denies changes in vision and hearing. RESPIRATORY: Denies SOB and cough. CV: Denies palpitations and CP GI: Denies abdominal pain, nausea, vomiting and diarrhea. : see HPI MSK: Denies new myalgia and joint pain. SKIN: Denies rash and pruritus. NEUROLOGICAL: Denies headache PSYCHIATRIC: Denies recent changes in mood. PHYSICAL EXAM: GENERAL: Alert and oriented x 3. NAD EYES: EOMI. Anicteric. HENT: Moist mucous membranes. No scleral icterus. No cervical lymphadenopathy. LUNGS: Clear to auscultation bilaterally. CARDIOVASCULAR: Regular rate and rhythm. No murmur. No JVD. ABDOMEN: Soft, non-tender +bs EXTREMITIES: No edema. Non-tender. SKIN: No rashes or lesions. Warm. NEUROLOGIC: No focal neurological deficits. CN II-XII grossly intact PSYCHIATRIC: Cooperative. Appropriate mood and affect [facility] Medical History Diabetes GERD (gastroesophageal reflux disease) Asthma Surgical History Hx of tonsillectomy Hx of appendectomy Family History Maternal Grandfather Hypertension Mother Diabetes Thyroid disorder Cancer Paternal Grandmother Cancer Social History Household Members: Significant Other Housing: House Alcohol intake: current Comment: rarely Patient Tobacco Use Status: Never used Tobacco e-Cigarette/Vaping Use: Never Used service: No Current occupational status: employed and student Current occupation: Accounting Current occupational exposures/hazards: No Cognitive needs: No Hearing needs: Yes Vision needs: No Questionnaire Thrive Questionnaire Date Thrive assessed: 08/06/24 I am a: Patient What is your living situation today?: I have a steady place to live Within the past 12 months, did the food you bought not last and you didn't have the money to get more?: Never true Within the past 12 months, did you worry whether your food would run out before you got money to buy more?: Never true Do you have trouble paying for medicines?: No Do you have trouble getting transportation to medical appointments?: No Do you have trouble paying your heating and electricity bill?: No Do you have trouble taking care of your child, family member or friend?: No Do you have trouble with day-to-day activities such as bathing, preparing meals, shopping, managing finances, etc.?: No Are you currently unemployed and looking for a job?: Yes Are you interested in more education?: I choose not to answer this question Please select the resources that you would like help with: None Currently or been in a relationship where the following occur: No concerns reported THRIVE Score: 0 AUDIT C Alcohol Use Questionnaire (AUDIT-C) 1. How often do you have a drink containing alcohol?: Monthly or less 2. How many drinks containing alcohol do you have on a typical day when you are drinking?: 1 or 2 3. How often do you have six or more drinks on one occasion?: Never Total Score: 1 TYRESE-7 AMB Questionnaire TYRESE-7 Date TYRESE - 7 assessed: 02/02/24 Source: Developed by Drs. Feliciano Herrera, Elsi Negrete, Patricio David and colleagues, with an educational ashley from [employer]. Physical exam (Primary Care) Vital Signs: Last Vital Signs Pulse 89 03/01/25 09:04 Resp 14 03/01/25 09:04 BP 110/82 03/01/25 09:04 Pulse Ox 98 03/01/25 09:04 Oxygen Delivery Method Room Air 03/01/25 09:04 BMI result Body Mass Index 33.6 Tobacco/Smoking Status: Tobacco use Status Tobacco use date assessed 11/23/24 03/01/25 09:01 Patient Tobacco Use Status Never used Tobacco 03/01/25 09:01 e-Cigarette/Vaping Use Never Used 03/01/25 09:01 Thrive Assessment: Date of Thrive Assessment Date Thrive assessed 08/06/24 03/01/25 09:01 Currently or been in a relationship where the following occur: No concerns reported Results AMB Hemoglobin A1c AMB Hemoglobin A1c 7.0 % Last Edit by Melani Roland CMA on 03/01/25 09:19 Results Reviewed Results Reviewed: Laboratory Last Values Hgb A1c (Clinic) 7.0 % (4.0-6.0) H 03/01/25 09:12 Coding Level of Care Code Est Pt Level 4 (33764) Diagnoses Type 2 diabetes mellitus with hyperglycemia, without long-term current use of insulin E11.65 Diabetes mellitus type: type 2 Diabetes mellitus keno terminal operator insulin use: without keno terminal operator use Diabetes mellitus complication status: with hyperglycemia Gastroesophageal reflux disease, unspecified whether esophagitis present K21.9 Esophagitis presence: esophagitis presence not specified Assessment & Plan Assessment & Plan (1) Diabetes: Code(s): E11.9 - Type 2 diabetes mellitus without complications Category: Medical Qualifiers: Diabetes mellitus type: type 2 Diabetes mellitus keno terminal operator insulin use: without keno terminal operator use Diabetes mellitus complication status: with hyperglycemia Qualified Code(s): E11.65 - Type 2 diabetes mellitus with hyperglycemia (2) GERD (gastroesophageal reflux disease): Code(s): K21.9 - Gastro-esophageal reflux disease without esophagitis Category: Medical Qualifiers: Esophagitis presence: esophagitis presence not specified Qualified Code(s): K21.9 - Gastro-esophageal reflux disease without esophagitis Plan Type 2 diabetes-congratulated on control. continue current medications, dietary, lifestyle changes. Declines additional medicaitons at this time Recent UTI-recheck urine studies. Orders: Orders AMB Hemoglobin A1c 03/01/25 E11.65 - Type 2 diabetes mellitus with hyperglycemia UA CC w/rflx Micro + Cult 03/01/25 R30.0 - Dysuria Medications: Refilled pioglitazone (Actos) 30 mg PO DAILY 90 tabs 3RF
[2025-03-01 09:04] VITALS: BP 110/82; PULSE 89; RESP 14; O2SAT 98; BMI 33.6
== END 2025-03-01 09:33 | disposition home or self-care (01) ==
PROVIDERS: PCP Internal Medicine; Visit Provider Internal Medicine
DX: E11.65 Type 2 diabetes mellitus with hyperglycemia (principal); K21.9 Gastro-esophageal reflux disease without esophagitis

== ENCOUNTER 2025-03-01 08:58 | Outpatient (REF) | payer OTHER, SELFPAY ==
[2025-03-01 11:21] LABS: MANUAL DIFF FLAG NO
[2025-03-01 11:34] LABS: Hematocrit 39.9 % (37.0-47.0); Hemoglobin 12.8 g/dl (12.0-16.0); Imm Gran Abs Auto 0.01 X10*3/uL (0.00-0.03); Imm Gran Pct Auto 0.2 % (0.0-0.4); Lymphocytes Absolute Auto 2.3 X10*3/uL (1.2-4.9); Mean Corpuscular HGB Conc 32.1 g/dl (31.0-35.0); Mean Corpuscular Hemoglobin 28.8 pg (27.0-33.0); Mean Corpuscular Volume 89.7 fL (80.0-98.0); NRBC Abs Auto 0.000 X10*3/uL (0.0-0.012); NRBC Pct Auto 0.0 /100WBC (0.0-0.2); Platelet Count 206 X10*3/uL (160-400); Red Blood Count 4.45 X10*6/uL (4.20-5.50); White Blood Count 5.0 X10*3/uL (4.8-10.8)
[2025-03-01 11:47] LABS: Total Hemoglobin (HGBA1C) 3393.3083 umol/L
[2025-03-01 11:53] LABS: Alanine Aminotransferase 13 U/L (0-31); Albumin Level 4.3 g/dL (3.5-5.0); Alkaline Phosphatase 71 U/L (39-117); Anion Gap 11 (12-20); Aspartate Amino Transferase 15 U/L (5-31); Blood Urea Nitrogen 17 mg/dL (9-16); Calcium 9.1 mg/dL (8.4-10.2); Carbon Dioxide 28 mmol/L (22-29); Chloride 106 mmol/L (96-108); Cholesterol 174 mg/dL (<200); Estimated Glomerular Filt Rate > 60; HDL Cholesterol 54 mg/dL (>40); Potassium 4.3 mmol/L (3.3-5.1); Sodium 141 mmol/L (135-145); Total Protein 6.8 g/dL (6.5-8.0); Triglycerides 115 mg/dL (<150)
[2025-03-01 12:28] LABS: Folate 15.6 ng/mL (> or = 4.0); Vitamin B12 564 pg/mL (200-900)
[2025-03-01 14:50] LABS: Appearance Urine Cloudy; Glucose Urine UA Negative (Negative); PH 7.0 (5.0-9.0); Specific Gravity - Urine 1.015 (1.005-1.025); UMIC TRIGGER UACC YES
[2025-03-01 15:00] LABS: UACC Culture Trigger YES
== END 2025-03-01 08:59 | disposition home or self-care (01) ==
LOC: HO.WFDLDS 08:58
PROVIDERS: PCP Internal Medicine; Visit Provider Internal Medicine
DX: E11.65 Type 2 diabetes mellitus with hyperglycemia (principal); E11.42 Type 2 diabetes mellitus with diabetic polyneuropathy; K21.9 Gastro-esophageal reflux disease without esophagitis; R30.0 Dysuria
CPT/HCPCS: 36415; 80053; 80061; 81001; 82607; 82746; 83036; 85025; 87086

== ENCOUNTER 2025-06-03 13:30 | Outpatient (AMB) | payer OTHER, SELFPAY ==
[2025-06-03 13:37] VITALS: BP 124/88; PULSE 102; RESP 14; O2SAT 98; BMI 33.8
--- NOTE | 2025-06-03 13:37 | A.OFFPC_ITS ---
Vital Signs 06/03/25 13:37 Height 5 ft 5 in Weight 203 lb 4 oz BMI 33.8 BP 124/88 Blood Pressure Location Lt brachial Position Sitting Respiration 14 Pulse 102 H Pulse Source Pulse Oximeter Pulse Oximetry (%) 98 Oxygen Delivery Method Room Air Intake Visit Reasons: DM Intake Note: Diabetes follow up Cell Room Operator Required: No Allergies Seasonal Allergies Allergy (Mild, Verified 06/03/25 13:39) Nasal congestion milk Adverse Reaction (Intermediate, Verified 06/03/25 13:39) Abdominal Pain Tobacco use date assessed: 06/03/25 Dental Screening Dental Screen Date: 11/23/24 HPI HPI Comments History of Present Illness Details 60 year old female with a past medical h istory of type 2 diabetes mellitus, GERD, asthma, abnormal brain MRI presenting for follow up. Type 2 diabetes: On metformin 1500mg daily, glipizide 20 daily, Actos 30mg. Has been out of Actos for the past few weeks. A1C today is 7.9% from A1C 7.0%. Last A1C 7.1%. Last A1C 8.8% from 8.6%. She is eating low carb, exercising multiple times per week. Has seen nutrition, using nutrition ward. Asthma: stable on albuterol Colonoscopy: Declines (also declines cologuard) Mammogram: RID [facility] Hernandez: Abraham HUFFMAN CONSTITUTIONAL: Denies weight loss, fever and chills. HEENT: Denies changes in vision and hearing. RESPIRATORY: Denies SOB and cough. CV: Denies palpitations and CP GI: Denies abdominal pain, nausea, vomiting and diarrhea. : see HPI MSK: Denies new myalgia and joint pain. SKIN: Denies rash and pruritus. NEUROLOGICAL: Denies headache PSYCHIATRIC: Denies recent changes in mood. PHYSICAL EXAM: GENERAL: Alert and oriented x 3. NAD EYES: EOMI. Anicteric. HENT: Moist mucous membranes. No scleral icterus. No cervical lymphadenopathy. LUNGS: Clear to auscultation bilaterally. CARDIOVASCULAR: Regular rate and rhythm. No murmur. No JVD. ABDOMEN: Soft, non-tender +bs EXTREMITIES: No edema. Non-tender. SKIN: No rashes or lesions. Warm. NEUROLOGIC: No focal neurological deficits. CN II-XII grossly intact PSYCHIATRIC: Cooperative. Appropriate mood and affect [facility] Medical History Diabetes GERD (gastroesophageal reflux disease) Asthma Surgical History Hx of tonsillectomy Hx of appendectomy Family History Maternal Grandfather Hypertension Mother Diabetes Thyroid disorder Cancer Paternal Grandmother Cancer Social History Household Members: Significant Other Housing: House Alcohol intake: current Comment: rarely Patient Tobacco Use Status: Never used Tobacco e-Cigarette/Vaping Use: Never Used service: No Current occupational status: employed and student Current occupation: Accounting Current occupational exposures/hazards: No Cognitive needs: No Hearing needs: Yes Vision needs: No Questionnaire Thrive Questionnaire Date Thrive assessed: 08/06/24 I am a: Patient What is your living situation today?: I have a steady place to live Within the past 12 months, did the food you bought not last and you didn't have the money to get more?: Never true Within the past 12 months, did you worry whether your food would run out before you got money to buy more?: Never true Do you have trouble paying for medicines?: No Do you have trouble getting transportation to medical appointments?: No Do you have trouble paying your heating and electricity bill?: No Do you have trouble taking care of your child, family member or friend?: No Do you have trouble with day-to-day activities such as bathing, preparing meals, shopping, managing finances, etc.?: No Are you currently unemployed and looking for a job?: Yes Are you interested in more education?: I choose not to answer this question Please select the resources that you would like help with: None Currently or been in a relationship where the following occur: No concerns reported THRIVE Score: 0 AUDIT C Alcohol Use Questionnaire (AUDIT-C) 1. How often do you have a drink containing alcohol?: Never 3. How often do you have six or more drinks on one occasion?: Never Total Score: 0 TYRESE-7 AMB Questionnaire TYRESE-7 Date TYRESE - 7 assessed: 02/02/24 Source: Developed by Elsi Foster B.W. Caden, Patricio David and colleagues, with an educational ashley from [facility]. Physical exam (Primary Care) Vital Signs: Last Vital Signs Pulse 102 H 06/03/25 13:37 Resp 14 06/03/25 13:37 BP 124/88 06/03/25 13:37 Pulse Ox 98 06/03/25 13:37 Oxygen Delivery Method Room Air 06/03/25 13:37 BMI result Body Mass Index 33.8 Tobacco/Smoking Status: Tobacco use Status Tobacco use date assessed 06/03/25 06/03/25 13:46 Patient Tobacco Use Status Never used Tobacco 06/03/25 13:46 e-Cigarette/Vaping Use Never Used 06/03/25 13:46 Thrive Assessment: Date of Thrive Assessment Date Thrive assessed 08/06/24 06/03/25 13:46 Currently or been in a relationship where the following occur: No concerns reported Results AMB Hemoglobin A1c AMB Hemoglobin A1c 7.9 % Last Edit by Melani Roland CMA on 06/03/25 13:52 Results Reviewed Results Reviewed: Laboratory Last Values Hgb A1c (Clinic) 7.9 % (4.0-6.0) H 06/03/25 13:51 Coding Level of Care Code Est Pt Level 4 (06516) Diagnoses Type 2 diabetes mellitus with hyperglycemia, without long-term current use of insulin E11.65 Diabetes mellitus type: type 2 Diabetes mellitus supervisor intermediates insulin use: without supervisor intermediates use Diabetes mellitus complication status: with hyperglycemia Assessment & Plan Assessment & Plan (1) Diabetes: Code(s): E11.9 - Type 2 diabetes mellitus without complications Category: Medical Qualifiers: Diabetes mellitus type: type 2 Diabetes mellitus supervisor intermediates insulin use: without supervisor intermediates use Diabetes mellitus complication status: with hyperglycemia Qualified Code(s): E11.65 - Type 2 diabetes mellitus with hyperglycemia Plan Diabetes Suboptimal control. Increase max dose of metformin. Refilled actos which she has been out of Labs in 3 months Orders: Orders AMB Hemoglobin A1c 06/03/25 E11.65 - Type 2 diabetes mellitus with hyperglycemia Complete Blood Count Auto Diff 06/03/25 E11.65 - Type 2 diabetes mellitus with hyperglycemia, K21.9 - Gastro-esophageal reflux disease without esophagitis Comprehensive Met. Panel 06/03/25 E11.65 - Type 2 diabetes mellitus with hyperglycemia, K21.9 - Gastro-esophageal reflux disease without esophagitis Hemoglobin A1c 06/03/25 E11.65 - Type 2 diabetes mellitus with hyperglycemia, K21.9 - Gastro-esophageal reflux disease without esophagitis Microalbumin, Random (w Creat) 06/03/25 E11.65 - Type 2 diabetes mellitus with hyperglycemia, K21.9 - Gastro-esophageal reflux disease without esophagitis Lipid Panel 06/03/25 E11.65 - Type 2 diabetes mellitus with hyperglycemia, K21.9 - Gastro-esophageal reflux disease without esophagitis Medications: New metformin ER (Fortamet) 2,000 mg (2 x 1,000 mg) PO DAILY 180 tabs 3RF glipizide ER 20 mg (2 x 10 mg) PO DAILY 180 tabs 3RF Refilled pioglitazone (Actos) 30 mg PO DAILY 90 tabs 3RF Discontinued glipizide ER Discontinued Reason: Doctor's Order 20 mg (4 x 5 mg) PO DAILY 360 tabs 3RF
--- OUTSIDE RECORDS SUMMARY | 2025-06-03 18:58 | XMS_ITS | Data Portability ---
Author Organization [place] - [facility], Allergy Address [address] [address] Care Team Providers Care Carpenter Mine Name Role Phone CLIF KEVIN Primary Care Provider [phone] Assessment Encounter Date Assessment Date Assessment LastModified by Organization Details LastModified Time 06/10/2024 06/10/2024 Overall patient doing well with regards to the absence of fluctuations in hearing. Audiometric testing today shows similar left-sided sensorineural hearing loss in comparison to her last audiogram 1 year ago. I have given her a copy of her audiogram to bring back to her accounting specialist to ensure that her hearing aid is set to match her current level of hearing loss. Patient would like to continue with yearly audiometric testing to monitor for fluctuation or progression. [email or web address] Not available 06/10/2024 10:18:26 Plan of Treatment [...] Details Recorded Time Sensorin eural hearing loss 95797337 Active 2021 Sensorin eural hearing loss, unilater al, left ear, with unrestri cted hearing on the contrala teral side; Note: Date Diagnose d: 2 11:00 AM (H90.42) Not Available [facility] 4 03:19:01 Sudden idiopath ic hearing loss 230503570 Active 2021 Sudden idiopath ic hearing loss, left ear; Note: Date Diagnose d: 2 11:00 AM (H91.22) Not Available [facility] 4 03:19:00 General unsteadi ness [id number] Completed 202101/23/2024 Unsteadi ness on feet; Note: Date Diagnose d: 2 11:00 AM (R26.81) Not Available [facility] 4 03:19:00 Labyrint hitis 40310810 Completed 202101/23/2024 Labyrint hitis, left ear; Note: Date Diagnose d: 2 11:00 AM (H83.02) Not Available [facility] 4 03:19:00 Tinnitus of left ear 16148667605 06 Active 2021 Tinnitus , left ear; Note: Date Diagnose d: 2 11:00 AM (H93.12) Not Available [facility] 4 03:19:00 M ni re's disease 33750501 Active 2022 Meniere' s disease, left ear; Note: Date Diagnose d: 3 10:41 AM (H81.02) Not Available [facility] 4 03:19:00 Problem Notes None recorded. Procedures Surgical History Date Name Laterality Status Provider Name and Address Organization Details Recorded Time 06/10/2024 Air & Speech Audio with Tymps - 32025, 99643 & 74514 completed RUDDY LY MA, [facility] [address] [place] [address], [phone], [facility] - [facility] 06/10/2024 09:57:27 Imaging Results None recorded. [...] mg tablet 08/22 completed Medicati on ID: [id number] B rand Name: [email or web address] hernandez Send Method: E-Prescr ibed Sub s Allowed: [...] Address Organization Details Last Updated DateTime 06/10/2024 43483.51 g 32.4 kg/m2 165.1 cm Naa Medrano MA [facility] 06/10/2024 10:04:42 Social History None recorded. Functional Status None recorded. Mental Status None recorded. Family History Nothing Reported. Medical History No medical history recorded. Gynecological HistoryNo gynecological history recorded. Obstetrics History GPAL:G 0 P 0 0 0 0 Past Encounters Encounter ID Performer Location Encounter Start Date Encounter Closed Date Diagnosis/Indication Diagnosis SNOMED-CT Code Diagnosis ICD10 Code Diagnosis IMO Codes Diagnosis Note [id number] AUSTIN MATHEWS MD [facility] [address] [address] 06/10/2024 09:17:38 06/10/2024 10:18:07 Sensorineural hearing loss 48376761 H90.42 Audiologic al evaluation results: Right ear: Normal hearing with excellent word recognitio n. Left ear: Mild SNHL with excellent word recognitio n. Tympanomet [...] López Member ID Guarantor Name 06/10/2024 1 [facility] Cyndy Valladares Rima [id number] Cyndy Valladares Rima 06/10/2024 1 [facility] [employer] Cyndy A Rima [id number] Cyndy Valladares Rima 06/10/2024 2 [facility] [employer] Cyndy A Rima [id number] Cyndy Valladares Rima Notes Date Note Type Note Provider Name and Address Organization Details Recorded Time 06/10/2024 text/html 59-year-old female who suffered a left sudden sensorineural hearing [...] dispensed through a hearing instrument dispenser in [place]. She had also been following a migraine diet. She comes in today for 1 year follow-up and audiogram.. Overall doing very well with her hearing aid and finds that it provides excellent benefit. AUSTIN MATHEWS MD [address] [place] [address], [phone], [facility] - [facility] 06/10/2024 10:18:38 OBGyn Episode No OBEpisode recorded.
== END 2025-06-03 14:07 | disposition home or self-care (01) ==
LOC: HO.HMCFM 13:31
PROVIDERS: PCP Internal Medicine; Visit Provider Internal Medicine
DX: E11.65 Type 2 diabetes mellitus with hyperglycemia (principal)

== ENCOUNTER → 2025-06-03 13:30 | Outpatient (BNVA) | payer OTHER, SELFPAY | PROVIDERS: PCP Internal Medicine; Visit Provider Internal Medicine | DX: E11.65 Type 2 diabetes mellitus with hyperglycemia (principal) | CPT/HCPCS: 83036 ==